=== PATIENT | male | born 1955 | race Caucasian/White ===

== ENCOUNTER 2016-10-29 11:16 | Emergency (ER) | payer MEDICARE, MEDICAID ==
[2016-10-29 11:16] VITALS: BMI 32.4
[2016-10-29 11:36] VITALS: RESP 18; TEMP 98.6
--- NOTE | 2016-10-29 11:36 | ED PDOC ---
Arrival/HPI - General Chief Complaint: Chest Pain Time Seen by Provider: 10/29/16 11:20 Historian: Patient, EMS - History of Present Illness Narrative History of Present Illness (Text): 10/29/16 11:33 A 61 year old male, whose past medical history includes diabetes, hypertension, CAD with 5 stents and TX, was brought into the emergency department by EMS complaining of non-radiating midsternal chest pain 20 minutes prior to arrival. As per EMS, patient received 3 Aspirins, 2 Nitroglycerin and 4 mg of Zofran on route. Patient states his pain has improved after treatment. Patient denies any fever, nausea, vomiting, diarrhea, abdominal pain, shortness of breath or any other complaints. Patient reports he recently traveled back from [place] country yesterday and arrested today regarding unpaid tickets. he was just released today but got cp. PMD: Dr. Huston 10/29/16 19:49 Time/Duration: Other (20 minutes [employer]) Symptom Course: Improving Quality: Other Context: Other Past Medical History - Provider Review Nursing Documentation Reviewed: Yes - Infectious Disease Hx of Infectious Diseases: None - Tetanus Immunization Tetanus Immunization: Unknown - Cardiac Hx Cardiac Disorders: Yes Hx TX: Yes Hx Hypertension: Yes - Pulmonary Hx Respiratory Disorders: No - Neurological Hx Neurological Disorder: No - HEENT Hx HEENT Disorder: Yes (glasses) - Renal Hx Renal Disorder: No - Endocrine/Metabolic Hx Diabetes Mellitus Type 1: Yes - Hematological/Oncological Hx Blood Disorders: No - Integumentary Hx Dermatological Disorder: No - Musculoskeletal/Rheumatological Hx Falls: No - Gastrointestinal Hx Gastroesophageal Reflux: Yes - Genitourinary/Gynecological Hx Genitourinary Disorders: No - Psychiatric Hx Depression: No Hx Emotional Abuse: No Hx Physical Abuse: No Hx Substance Use: No - Past Surgical History Past Surgical History: No Previous - Surgical History Hx Coronary Stent: Yes (x5 (2005)) - Anesthesia Hx Anesthesia: Yes Hx Anesthesia Reactions: No Hx Malignant Hyperthermia: No - Suicidal Assessment Feels Threatened In Home Enviroment: No Family/Social History - Physician Review Nursing Documentation Reviewed: Yes Family/Social History: No Known Family HX Smoking Status: Former Smoker Hx Alcohol Use: No Hx Substance Use: No Hx Substance Use Treatment: No Allergies/Home Meds Allergies/Adverse Reactions: Allergies Penicillins Allergy (Verified 10/29/16 11:25) RASH Home Medications: Home Meds Medication Instructions Recorded Confirmed Aspirin [Aspir 81] 81 mg PO DAILY 02/15/13 04/23/16 Atorvastatin Calcium [Lipitor] 40 mg PO DAILY 02/15/13 04/23/16 Clopidogrel [Plavix] 75 mg PO DAILY 02/15/13 04/23/16 Esomeprazole Magnesium [Nexium] 40 mg PO DAILY 02/15/13 04/23/16 Ezetimibe [Zetia] 10 mg PO BID 02/15/13 04/23/16 Metformin HCl [Metformin] 500 mg PO BID 02/15/13 04/23/16 Nitroglycerin [Nitrostat] 0.4 mg SL PRN PRN 02/15/13 04/23/16 Enalapril Maleate [Enalapril] 10 mg PO DAILY 03/14/13 04/23/16 Furosemide [Lasix] 40 mg PO DAILY 03/14/13 04/23/16 Isosorbide Mononitrate [Imdur] 60 mg PO DAILY 03/14/13 04/23/16 Metoprolol Tartrate 25 mg PO DAILY 03/14/13 04/23/16 Review of Systems - Physician Review All systems were reviewed & negative as marked: Yes - Review of Systems Constitutional: absent: Fevers Respiratory: absent: SOB Cardiovascular: Chest Pain Gastrointestinal: absent: Abdominal Pain, Diarrhea, Nausea, Vomiting Physical Exam Vital Signs Temp Pulse Resp BP Pulse Ox 10/29/16 13:47 98.6 F 70 18 130/68 98 10/29/16 11:33 98.6 F 84 18 146/74 96 Appearance: Positive for: Well-Appearing, Non-Toxic, Comfortable Pain Distress: None Mental Status: Positive for: Alert and Oriented X 3 - Systems Exam Head: Present: Atraumatic, Normocephalic Pupils: Present: PERRL Extroacular Muscles: Present: EOMI Conjunctiva: Present: Normal Mouth: Present: Moist Mucous Membranes Neck: Present: Normal Range of Motion Respiratory/Chest: Present: Clear to Auscultation, Good Air Exchange. No: Respiratory Distress, Accessory Muscle Use, Tender to Palpation Cardiovascular: Present: Regular Rate and Rhythm, Normal S1, S2. No: Murmurs Abdomen: Present: Normal Bowel Sounds. No: Tenderness, Distention, Peritoneal Signs Back: Present: Normal Inspection Upper Extremity: Present: Normal Inspection, NORMAL PULSES. No: Cyanosis, Edema Lower Extremity: Present: Normal Inspection, NORMAL PULSES. No: Edema, CALF TENDERNESS Neurological: Present: GCS=15, CN II-XII Intact, Speech Normal Skin: Present: Warm, Dry, Normal Color. No: Rashes Psychiatric: Present: Alert, Oriented x 3, Normal Insight, Normal Concentration Medical Decision Making ED Course and Treatment: 10/29/16 11:33 Impression: A 61 year old male with non-radiating midsternal chest pain. Patient denies any nausea, vomiting, shortness of breath or any other complaints. Differential Diagnosis included but are not limited to: PE vs. CAD Plan: -- EKG -- Labs -- Reassess and disposition Progress Notes: EKG shows NSR at [address]/T changes. Interpreted by me. 10/29/16 13:31 Labs reviewed, troponin negative. Noted anemia and hyperglycemia. 10/29/16 13:34 Patient states he needs fix some paper work and is unable to stay in the emergency room any longer. The patient is choosing to leave against medical advice. I have personally explained to the patient that choosing to do so may result in permanent bodily harm or . I have discussed at great length that without further evaluation and monitoring there may be unforeseen circumstances and/or deterioration causing permanent bodily harm or as a result of their choice. The patient is alert, oriented, and shows the mental capacity to make clear decisions regarding the patients health care at this time. The patient continues to wish to leave against medical advice. In light of the patients decision to leave against medical advice, follow-up has been arranged and the patient is aware of the importance to following up as instructed. The patient has been advised that they should return to the emergency room immediately if they change their mind at any time, or if their condition begins to change or worsen in any way. 10/29/16 19:50 - Lab Interpretations Lab Results: 10/29/16 11:40 10/29/16 11:40 Lab Results 10/29/16 11:45: POC Glucose (mg/dL) 122 H 10/29/16 11:40: WBC 5.4 D, RBC 5.09, Hgb 13.0 L, Hct 39.0 L, MCV 76.6 L, MCH 25.5, MCHC 33.3, RDW 16.7 H, Plt Count 234, MPV 9.8, Gran % 62.1, Lymph % (Auto ) 24.1, [place] % (Auto) 12.5 H, Eos % (Auto) 1.1 L, Baso % (Auto) 0.2, Gran # 3.38 , Lymph # 1.3, [place] # 0.7 H, Eos # 0.1, Baso # 0.01, PT 10.9, INR 1.01, APTT 24.8, D-Dimer, Quantitative 0.29, Sodium 137, Potassium 3.8, Chloride 99, Carbon Dioxide 24, Anion Gap 18, BUN 17, Creatinine 0.8, Est GFR ( Amer) > 60, Est GFR (Non-Af Amer) > 60, Random Glucose 130 H, Calcium 9.2, Total Bilirubin 0.7, AST 49, ALT 46, Alkaline Phosphatase 104, Lactate Dehydrogenase 526, Total Creatine Kinase 167, Troponin I 0.10 D, Total Protein 7.8, Albumin 4.2, Globulin 3.6, Albumin/Globulin Ratio 1.2 I have reviewed the lab results: Yes - Scribe Statement The provider has reviewed the documentation as recorded by the Slava Zuluaga Provider Scribe Attestation: All medical record entries made by the Scribe were at my direction and personally dictated by me. I have reviewed the chart and agree that the record accurately reflects my personal performance of the history, physical exam, medical decision making, and the department course for this patient. I have also personally directed, reviewed, and agree with the discharge instructions and disposition. Disposition/Present on Arrival - Present on Arrival Any Indicators Present on Arrival: No History of DVT/PE: No History of Uncontrolled Diabetes: No Urinary Catheter: No History of Decub. Ulcer: No History Surgical Site Infection Following: None - Disposition Have Diagnosis and Disposition been Completed?: Yes Diagnosis: Chest pain Disposition: AGAINST MEDICAL ADVICE Disposition Time: 13:34 Patient Plan: Discharge (ama) Condition: STABLE Discharge Instructions (ExitCare): Chest Pain (ED), Against Medical Advice (ED) Additional Instructions: follow up with your primary doctor as soon as possible. return to the ED with any worsening or concerning symptoms at any time. Referrals: Eb Huston MD [Primary Care Provider] - Follow up with primary
[2016-10-29 11:55] LABS: ADD MANUAL DIFF? NO
[2016-10-29 11:58] LABS: BASO # 0.01 K/mm3 (0.0-2.0); BASO % 0.2 % (0.0-3.0); EOS # 0.1 (0.0-0.7); EOS % 1.1 % (1.5-5.0); GRAN # 3.38 (1.4-6.5); GRAN % 62.1 % (50.0-68.0); LYMPH # 1.3 (1.2-3.4); LYMPH % 24.1 % (22.0-35.0); MEAN CELL VOLUME 76.6 fL (80.0-105.0); MEAN CORPUSCULAR HEMOGLOBIN 25.5 pg (25.0-35.0); MEAN CORPUSCULAR HGB CONC 33.3 g/dl (31.0-37.0); MEAN PLATELET VOLUME 9.8 fl (7.0-11.0); MONO # 0.7 (0.1-0.6); MONO % 12.5 % (1.0-6.0); PLATELET COUNT 234 10^3/uL (120.0-450.0); RED CELL DISTRIBUTION WIDTH 16.7 % (11.5-14.5); WHITE BLOOD COUNT 5.4 10^3/ul (4.5-11.0)
[2016-10-29 12:11] LABS: ALB/GLOB RATIO 1.2 (1.1-1.8); ALKALINE PHOSPHATASE 104 U/L (38-133); ALT/SGPT 46 U/L (7-56); AST/SGOT 49 U/L (15-59); BILIRUBIN,TOTAL 0.7 mg/dL (0.2-1.3); BLOOD UREA NITROGEN 17 mg/dL (7-21); CALCIUM 9.2 mg/dL (8.4-10.5); CARBON DIOXIDE 24 mmol/L (21-33); CHLORIDE 99 mmol/L (95-110); GFR AFRICAN-AMERICAN > 60; GLUCOSE,RANDOM 130 mg/dL (70-110); POTASSIUM 3.8 mmol/L (3.6-5.0); SODIUM 137 mmol/L (132-148); TOTAL PROTEIN 7.8 g/dL (5.8-8.3)
[2016-10-29 12:16] LABS: INR 1.01 (0.93-1.08); PARTIAL THROMBOPLASTIN TIME 24.8 Seconds (23.7-30.8)
[2016-10-29 12:23] LABS: D DIMER 0.29 mg/L FEU (0-0.50)
[2016-10-29 13:49] VITALS: BP 130/68; PULSE 70; O2SAT 98
--- NOTE | 2016-10-29 19:55 | CARD ---
APPROVED REPORT EKG Measurement Heart [id number] <Conclusion> Normal sinus rhythm Normal ECG
== END 2016-10-29 13:59 | disposition left against medical advice (07) ==
LOC: ED 11:16
DX: R07.9 Chest pain, unspecified (principal); I10 Essential (primary) hypertension; I25.10 Atherosclerotic heart disease of native coronary artery without angina pectoris; E11.9 Type 2 diabetes mellitus without complications